=== PATIENT | male | born 1980 | race Caucasian/White ===

== ENCOUNTER 2021-02-23 18:16 | Emergency (ER) | payer OTHER ==
[~2021-02-23] VITALS: Ht 185.4 cm; Wt 72.6 kg
[2021-02-23] MEDS ORDERED: TRAM50 PO (19:03)
== END 2021-02-23 19:10 | disposition home or self-care (01) ==
LOC: ER 18:16
DX: S93.401A Sprain of unspecified ligament of right ankle, initial encounter (principal); V58.4XXA Person boarding or alighting a pick-up truck or van injured in noncollision transport accident, initial encounter
CPT/HCPCS: 73610; 99283-25

== ENCOUNTER 2021-11-10 21:54 | Emergency (ER) | payer OTHER ==
[~2021-11-10] VITALS: Ht 182.9 cm; Wt 65.8 kg
[~2021-11-10 21:54] MED LIST: TRAM50 PO
[2021-11-10] MEDS ORDERED: CEPH500 PO (22:30)
== END 2021-11-10 23:45 | disposition home or self-care (01) ==
LOC: ER 21:54
DX: L02.211 Cutaneous abscess of abdominal wall (principal); F17.210 Nicotine dependence, cigarettes, uncomplicated
CPT/HCPCS: 10061; 99282-25